=== PATIENT | male | born 1960 | race Caucasian/White ===

== ENCOUNTER → 2020-09-18 | Day surgery (SDC) | payer OTHER ==
[~2020-09-18] MED LIST: KLOR-CON M2020 MEQ PO; LIPITOR40 MG PO; LISINOPRIL-HCT1 EAC2 PO; NORCO5 PO; NORVASC10 MG PO; TOPROL XL50 MG PO
[2020-09-18 07:52] LABS: HEMATOCRIT 42.6 % (42.0-52.0); HEMOGLOBIN 14.7 gm/dL (14.0-18.0); MCH 31.6 pg (26.0-34.0); MCHC 34.6 g/dL (28.0-37.0); MCV 91.4 fL (80.0-100.0); MPV 7.2 fl. (7.2-11.1); RBC 4.66 mil/uL (4.50-6.00); RDW-CV 13.8 % (10.5-14.5); WBC 7.2 thou/uL (4.0-11.0)
[2020-09-18 08:00] LABS: CALCIUM 8.6 mg/dL (8.5-10.1); CREATININE 0.8 mg/dL (0.6-1.3); POTASSIUM 3.1 mmol/L (3.5-5.1)
--- NOTE | 2020-09-18 09:26 | EKG ---
[place] [address] ELECTROCARDIOGRAM REPORT Name: CHANTAL PRIETO Room: [facility].#: [id number] Admission: 09/18/20 Attend Phys: Chito Baez Discharge: Date of : 58 Date of Service: 09/18/20819 Report #: [id number] THIS REPORT FOR: //name// [facility] Test Date: 2020-09-18 Test Time: 08:20:07 Pat Name: CHANTAL PRIETO Department: Room: Gender: Elevated Motorman: : 1960 Requested By: Chito Domingo Order Number: [id number] Maribel MD: Julian Falcon Measurements Intervals [place] Rate: 46 P: 25 TX: 189 QRS: 33 QRSD: 95 T: 41 QT: 449 QTc: 393 Interpretive Statements Sinus bradycardia Atrial premature complex No previous ECG available for comparison Electronically Signed On 09-18-2020 9:26:07 CDT by Julian Falcon [email or web address] <ELECTRONICALLY SIGNED> By: Julian Falcon MD, [facility] 09/18/20925 9 9 Julian Falcon MD, FACC /EPI
--- NOTE | 2020-09-22 10:45 | OP ---
[facility] [address] [place] [address] OPERATIVE REPORT Name: CHANTAL PRIETO Room: [facility] M.R.#: [id number] Admission: 09/18/20 Attend Phys: Chito Domingo Discharge: Date of : 58 Report #: [id number] THIS REPORT FOR: cc: Marino Gonzalez MD, Khanh MD Patterson, Jonathan D. MD ~ DOC #: [id number] Chito Domingo MD DATE OF SURGERY: 09/18/2020 PREOPERATIVE DIAGNOSIS: Right inguinal hernia. POSTOPERATIVE DIAGNOSIS: Right inguinal hernia. OPERATION: Laparoscopic repair of right inguinal hernia with mesh. SURGEON: Chito Domingo MD. ANESTHESIA: General. ESTIMATED BLOOD LOSS: Minimal. SPECIMENS: None. DESCRIPTION OF PROCEDURE: After informed consent was obtained, the patient was brought to the operating room and placed supine. SCDs were placed and working, preoperative antibiotics were administered, general anesthesia was induced. The abdomen was prepped and draped in the usual sterile fashion. He had voided prior to surgery. A 10 mm incision was made below the umbilicus. Fascia was incised and a trocar was placed. Pneumoperitoneum was established. Right upper quadrant and left lower quadrant 5 mm trocars were placed under direct vision. The patient was placed in the Trendelenburg position. The peritoneum at the right ASIS was scored. Peritoneum was then incised and reflected inferiorly. I was able to identify the cord structures. He had an indirect hernia. All of the hernia contents including a cord lipoma were fully reduced. Cord structures were protected at all times. The pubic bone was identified. A large Bard 3DMax midway mesh was inserted. It was tacked to Jt's ligament with 2 absorbable tacks. I then reapproximated the peritoneum over the mesh with the tacker as well. There was 100% coverage of the mesh. I instilled the area with 10 mL of 0.5% Marcaine. The ports were removed under direct vision. The fascia was closed with a lieeny-gg-rxbha 0 Vicryl. Skin was closed with 4-0 Monocryl. Incisions were [place] [address] OPERATIVE REPORT Name: CHANTAL PRIETO Room: [facility]#: [id number] Admission: 09/18/20 Attend Phys: Chito Domingo Discharge: Date of : 58 Report #: [id number] COMPLICATIONS: None. DISPOSITION: The patient was taken to recovery in satisfactory condition. MD EDVIN Rodríguez/ENEDELIA/[facility] [place]ELECTRONICALLY SIGNED> By: Chito Domingo MD 09/22/20 1045 1236 [id number] Domingo MD /shruthi
== END | disposition home or self-care (01) ==
LOC: M.SUR 07:17
PROVIDERS: ATTEND Surgery
DX: K40.90 Unilateral inguinal hernia, without obstruction or gangrene, not specified as recurrent (principal); R10.9 Unspecified abdominal pain; I10 Essential (primary) hypertension; Z98.890 Other specified postprocedural states; Z79.899 Other long term (current) drug therapy; Z98.52 Vasectomy status